=== PATIENT | male | born 1965 | race Two or more races ===

== ENCOUNTER → 2020-01-15 | Day surgery (SDC) | payer BC ==
[~2020-01-15] VITALS: Ht 177.8 cm; Wt 95.3 kg
[~2020-01-15] MED LIST: CT SWABBABLE VALVE TRANS SET 1 EA INFUS.SET MC ONE; IOHEXOL-350 100 ML VIAL IV ONE; IV NS 0.9% 250 ML IV ONE; IV NS 0.9% 500 ML IV PRN; METOPROLOL TARTRATE INJ 5 MG/5 ML AMPUL ONE; NITROGLYCERIN 0.4 MG/TAB BOTTLE ONE; NITROGLYCERIN 4.9 GM SPRAY SL ONE
--- NOTE | 2020-01-15 16:00 | NUR ---
RN NOTES RECEIVED PATIENT AOX4 , DENIES SOB , CHEST PAIN AND DISCOMFORT , SPO2 OF 100% VIA RA , SR 75 ON MONITOR , RIGHT AC # 18 PATENT AND INTACT , PT DENIES ANY ALLERGY , NO HEART SURGERY PER PT , WILL CONTINUE TO MONITOR
[2020-01-15] MEDS: METOPROLOL TARTRATE INJ 5 MG/5 ML AMPUL IVP PRN ×4 (16:13→16:28)
[2020-01-15 16:32] VITALS: BP 167/117
--- NOTE | 2020-01-15 16:40 | NUR ---
RN NOTES PT STABLE POST CTA PROCEDURE , BP 48/67 , HR 70 SR , AFEBRILE , RR 18 SPO2 OF 100% VIA RA , DENIES ANY CHEST PAIN , DISCOMFORT , LIGHTHEADEDNESS , DIZZINESS AT THIS TIME , PT AMBULATORY , PIV INTACT , REPORT GIVEN TO AMBULANCE FOR PT TRANSFER ,
== END | disposition home or self-care (01) ==
LOC: CT 15:38
PROVIDERS: ATTEND Internal Medicine Interventional Cardiology
DX: I25.10 Atherosclerotic heart disease of native coronary artery without angina pectoris (principal)
CPT/HCPCS: 75574; J3490; J7050; Q9967